=== PATIENT | male | born 1975 | race Caucasian/White ===

== ENCOUNTER → 2017-10-15 11:46 | Outpatient (CLI) | payer MEDICAID, SELFPAY ==
--- NOTE | 2017-10-15 13:24 | STRESSREP ---
Stress Test Report Treadmill EKG report: Resting EKG: Normal sinus rhythm, poor R-wave progression across the precordium which may indicate old anterior wall myocardial infarction versus lead misplacement. Normal intervals. Treadmill EKG: The patient exercise according to a Manish protocol for 10 minutes and 46 seconds, achieving a maximum workload of 12.9 METS. Resting heart rate was initially 59 beats a minute and michele to maximum of 153 bpm which represents 85% of the maximal age corrected heart rate. Resting blood pressure is 130/84, and michele to maximum 154/70. Test was terminated due to the attainment of target heart rate. During exercise the patient's heart rate increased as expected. Patient had no dynamic EKG changes to suggest ischemia. No arrhythmias noted. Conclusions normal adequate treadmill EKG. Negative for ischemia by EKG criteria. No anginal symptoms noted. No arrhythmias noted. Average exercise capacity for age. Appropriate blood pressure response to exercise. Test terminated due to the attainment of target heart rate. Patient tolerated procedure well. No complications.
== END ==
PROVIDERS: Family Provider Student in an Organized Health Care Education/Training Program; PCP Student in an Organized Health Care Education/Training Program; Visit Provider Internal Medicine Cardiovascular Disease
DX: R00.2 Palpitations (principal); R06.02 Shortness of breath; R94.31 Abnormal electrocardiogram [ECG] [EKG]; R53.83 Other fatigue
CPT/HCPCS: 93017

== ENCOUNTER 2017-10-21 11:04 | Emergency (ER) | payer MEDICAID, SELFPAY ==
[2017-10-21 11:06] VITALS: BP 133/71; PULSE 103; RESP 16; TEMP 36.8; O2SAT 99; BMI 27.4
--- NOTE | 2017-10-21 11:10 | ED.RN ---
CALLED FOR EKG FOR CP.
--- NOTE | 2017-10-21 11:26 | CT_ITS ---
STUDY: CTA CHEST REASON FOR EXAM: Male, 42 years old. Shortness of breath. RADIATION DOSAGE (If Supplied By Facility): CTDIvol = ( 11.93 ) mGy, DLP = ( 487.15 ) mGycm TECHNIQUE: The examination was performed with the intravenous administration of 75 ml of Isovue 370 contrast material. Post-processing of the angiographic images was performed, with multiplanar reformation and 3D reconstruction. Individualized dose optimization techniques were used for this CT. COMPARISON: None. FINDINGS: Normal enhancement of the main pulmonary artery and right and left pulmonary arteries. Normal enhancement of the bilateral peripheral pulmonary arteries. There is no demonstrated pulmonary embolism. Normal thoracic aorta and visualized great vessels. There is no demonstrated aortic dissection. Normal heart and pericardium. Normal mediastinum. Normal hilar regions. Normal visualized trachea and bronchi. The lungs are well expanded. Mild degree of bibasilar atelectasis. Normal pleura. Normal chest wall structures. There are degenerative changes of thoracic spine. Diffuse fatty infiltration of the liver. CT/CTA Chest W/WO Contrast IMPRESSION: Mild degree of bibasilar atelectasis. Fatty infiltration of the liver. Electronically Signed: Arik Sanders MD at 13:32 EDT Tel [phone], Service support ,
--- NOTE | 2017-10-21 11:26 | EKG12_ITS ---
Test Reason : CP Blood Pressure : / mmHG Vent. Rate : 090 BPM Atrial Rate : 090 BPM P-R Int : 164 ms QRS Dur : 084 ms QT Int : 346 ms P-R-T Axes : 027 076 021 degrees QTc Int : 423 ms Normal sinus rhythm Anterior infarct , age undetermined Abnormal ECG Confirmed by KIMBER LORENZO, THERESA ([id number]), editor trade journal CARMEN ANDERSON ([id number]) on 10/24/2017 2:07:42 PM Referred By: Lucas Arizmendi Confirmed By:THERESA QUIROGA MD
[2017-10-21] MEDS: 0.9% Normal Saline 1,000 ML 1000 ML IV (11:48)
[2017-10-21 11:51] LABS: Absolute Lymphocyte Count 0.54 X10^3/ul (0.83-4.51); Absolute Neutrophil Count 10.5 X10^3/uL (2.0-7.7); Basophil# 0.01 X10^3/uL; Basophil% 0.1 % (0-1); Eosinophil# 0.02 X10^3/uL; Eosinophils% 0.2 % (0-5); Hematocrit 46.3 % (40-54); Hemoglobin 15.6 g/dl (13.0-16.5); Lymphocyte # 0.54 X10^3/ul (4.0); Lymphocyte % 4.6 % (19-41); Mean Corp Hgb Conc 33.7 g/gl (32-36); Mean Corpuscular Hgb 30.9 pg (27.0-32.0); Mean Corpuscular Volume 91.7 fL (80-94); Monocyte# 0.56 X10^3/uL; Monocyte% 4.8 % (0-10); Neutrophil # 10.48 X10^3/uL (2.7-7.7); Neutrophil % 90.2 % (47-70); Platelet Count 227 K/mm3 (150-450); RBC Distribution Width CV 13.2 % (11.6-14.6); RBC Distribution Width SD 43.4 fl (35.1-43.9); Red Blood Count 5.05 M/mm3 (4.6-6.2); White Blood Count 11.6 K/mm3 (4.4-11.0)
[2017-10-21 11:52] LABS: Differential Indicated SCAN CRITERIA MET; POSITIVE COUNT NO; POSITIVE DIFFERENTIAL YES; POSITIVE MORPHOLOGY NO
[2017-10-21 12:08] VITALS: BP 128/86; PULSE 85; RESP 17; O2SAT 95
[2017-10-21 12:10] LABS: AST(SGOT) 31 U/L (15-37); Alanine Aminotransfer ALT/SGPT 93 U/L (16-61); Albumin, Serum 4.2 g/dL (3.2-5.0); Alkaline Phosphatase 80 U/L (45-117); Anion Gap 8 (5-15); BUN 16 mg/dL (7-18); BUN/Creat Ratio 16.6 RATIO (10-20); Bilirubin, Direct 0.25 mg/dL (0.00-0.30); Calcium,Total 8.6 mg/dL (8.5-10.1); Chloride 109 mmol/L (98-107); Creatinine, Serum 0.96 mg/dL (0.70-1.30); EST Glomerular Filtration Rate 91 mL/min (>60); Est Glom Filt Rate - Afr Amer 110 mL/min (>60); Estimated Creatinine Clearance 90.46 ml/min; Globulin 3.8 g/dL (2.2-4.2); Glucose 100 mg/dL (74-106); Lipase 132 U/L (73-393); Potassium 3.8 mmol/L (3.5-5.1); Sodium Level 140 mmol/L (136-145)
[2017-10-21 13:26] VITALS: BP 130/90; PULSE 86; RESP 22; O2SAT 97
--- NOTE | 2017-10-21 13:41 | ED.VISSUMM ---
- ER Visit Summary Date of Service: 10/21/17 Chief Complaint: Chest pain History of Present Illness: The patient is a [address] Shirley and Dr. Arizmendi. He has chest pain began 4-5 days ago. It is continuous pressure. Zeta 10 at worst and currently. Is worsened by movement or exertion. Is relieved by nothing. He reports that he has been nausea and vomited once a day for the past week. No blood in his emesis. Also reports is been short of breath and diaphoretic. Patient had a stress test October 15 that was negative. He has hypertension as his only cardiac risk factor. 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 No recent travel. No ankle swelling or calf pain. Physical Examination: Vitals: Stable. Afebrile. General: Well-nourished and well-developed. Head: Normocephalic atraumatic. Neck: Supple, no lymphadenopathy. No JVD. Nontender. Cardiovascular: Regular rate and rhythm. No murmurs. Respiratory: No respiratory distress. Clear to auscultation bilaterally. Abdominal: Soft, mild epigastric tenderness to palpation, nondistended, normal bowel sounds. No guarding, rebound, or peritoneal signs. Back: Nontender. Extremities: Nontender, no edema. Skin: Normal color, no rash. Neurologic: Alert and oriented ?3. Cranial nerves II through XII are intact. Normal strength and sensation. Psych: Normal affect. Test Results: EKG is sinus at 90 with inferior Q waves. This is unchanged from July 2017. Troponin is negative despite days of constant pain. LFTs marked for an ALT of 93 and his direct bili is 1.2. Lipase is normal. Chem-7 is more for chloride 109. CBC is marked for white count 11.6, 97 neutrophils, 5 lymphocytes. CTA of the chest shows mild bibasilar atelectasis and a fatty liver. No PE or dissection. Emergency Department Course and Treatment: Patient is treated with aspirin and is resting comfortably. He refused pain or nausea medications. Treatment Plan: Patient has an appointment to see the PA for Dr. Arizmendi this afternoon. He is instructed to keep this appointment. He was discussed with Dr. Mason. His chest pain is not cardiac in etiology. He will be instructed follow-up Dr. Shirley for further evaluation as well. Return to the emergency department for any worsening symptoms. Disposition: To home in improved and stable condition. Impression: 1. Atypical chest pain. This note was generated with [employer] dictation software. It may contain incorrect words, spelling, and punctuation that were not noted in review of the chart prior to signing ED Disposition - Plan for ED Patient: Disposition: Home or Assisted Living Chief Complaint: Chest Pain Instructions: ED Chest Pain Atypical Unkn Cause Referrals: Christiano Shirley DO [Primary Care Provider] - 1-2 Days if not improving Lucas Arizmendi MD [STAFF PHYSICIAN] -
[2017-10-21 14:03] VITALS: BP 134/96; PULSE 94; RESP 22; O2SAT 95
== END 2017-10-21 14:08 | disposition home or self-care (01) ==
PROVIDERS: Emergency Provider Emergency Medicine; Family Provider Student in an Organized Health Care Education/Training Program; PCP Student in an Organized Health Care Education/Training Program
DX: R07.89 Other chest pain (principal); R11.2 Nausea with vomiting, unspecified; R06.00 Dyspnea, unspecified; R61 Generalized hyperhidrosis; J98.11 Atelectasis; K76.0 Fatty (change of) liver, not elsewhere classified; I10 Essential (primary) hypertension; Z86.718 Personal history of other venous thrombosis and embolism; Z98.52 Vasectomy status; F17.220 Nicotine dependence, chewing tobacco, uncomplicated
CPT/HCPCS: 71275; 80048; 80076; 83690; 84484; 85025; 93005; 96360; 96361; 99283; J7030; Q9967

== ENCOUNTER → 2018-10-28 14:41 | Outpatient (CLI) | payer MEDICAID, SELFPAY ==
[2018-10-08 14:40] VITALS: BMI 29.9
--- NOTE | 2018-10-28 14:42 | ECHOD_ITS ---
Reason For Study: Dyspne/SOB Procedure This was a 2D Doppler, Color Flow transthoracic echocardiogram. The exam was of adequate technical quality. Exam performed in department. Left Ventricle Normal LV size. Left ventricular systolic function is normal. The estimated ejection fraction is 55 %. No evidence for diastolic dysfunction. No regional wall motion abnormalities noted. Right Ventricle Normal RV size. Normal systolic function. Atria Normal left atrium. Normal right atrium. No doppler evidence for ASD. Mitral Valve There is no mitral annular calcification. Normal mitral valve. Trivial mitral valve insufficiency. Tricuspid Valve Normal tricuspid valve. Trivial tricuspid valve insufficiency. Right ventricular systolic pressure estimated to be 28 mmHg. Aortic Valve Trisinus/trileaflet aortic valve. Normal aortic valve. Pulmonic Valve Normal pulmonic valve. Trivial pulmonic valve insufficiency. Great Vessels Normal sized aortic root. Pericardium/Pleural No pericardial effusion. MMode/2D Measurements & Calculations LVIDd: 5.2 cm IVSd: 1.0 cm Ao root diam: 3.4 cm LVIDs: 3.4 cm LVPWd: 0.86 cm LA dimension: 4.1 cm RVDd: 4.1 cm FS: 35.2 % Time Measurements MV dec time: 0.21 sec Doppler Measurements & Calculations MV E max parvez: 106.4 cm/sec Lat Peak E' Parvez: 15.4 cm/sec Med Peak E' Parvez: 10.8 cm/sec MV A max parvez: 88.9 cm/sec E/E' lat: 6.9 E/E' med: 9.9 MV E/A: 1.2 MV V2 max: 114.2 cm/sec MV P1/2t max parvez: 108.3 cm/sec Ao V2 max: 125.1 cm/sec MV max P.2 mmHg MV P1/2t: 106.2 msec Ao max P.3 mmHg MV V2 mean: 58.5 cm/sec Ao V2 mean: 87.5 cm/sec MV mean P.6 mmHg MV dec slope: 298.7 cm/sec2 Ao mean P.5 mmHg MV V2 VTI: 38.8 cm MVA(P1/2t): 2.1 cm2 Ao V2 VTI: 26.1 cm LV V1 max: 101.4 cm/sec PA V2 max: 117.5 cm/sec PI end-d parvez: 100.8 cm/sec LV V1 max P.1 mmHg LV V1 mean P.0 mmHg LV V1 mean: 65.1 cm/sec LV V1 VTI: 22.4 cm TR max parvez: 248.7 cm/sec TR max P.7 mmHg Interpretation Summary Left ventricular systolic function is normal. The estimated ejection fraction is 55 %. Trivial mitral valve insufficiency. Trivial tricuspid valve insufficiency. Trivial pulmonic valve insufficiency. Right ventricular systolic pressure estimated to be 28 mmHg. No evidence for diastolic dysfunction. Ordering Physician: Lucas Arizmendi Referring Physician: Lucas Arizmendi Performed By: Manuel Pedersen RCS
== END ==
PROVIDERS: Family Provider Student in an Organized Health Care Education/Training Program; PCP Student in an Organized Health Care Education/Training Program; Referring Provider Internal Medicine Cardiovascular Disease; Visit Provider Internal Medicine Cardiovascular Disease
DX: I10 Essential (primary) hypertension (principal); R00.2 Palpitations; R94.31 Abnormal electrocardiogram [ECG] [EKG]
CPT/HCPCS: 93306

== ENCOUNTER → 2020-07-11 06:56 | Outpatient (CLI) | payer MEDICAID, SELFPAY ==
[2020-06-15 11:43] VITALS: BMI 32.6
--- NOTE | 2020-07-11 16:17 | STRESSREP_ITS ---
Stress Test Report Date: 07-11-2020 Procedure: Exercise tolerance test/imaging study Indications: Shortness of breath/dyspnea on exertion Consent: Per the patient Procedure: The patient exercised on a Manish protocol for 11 minutes and 8 seconds completing Stage III and 2 minutes and 8 seconds of Stage IV achieving a peak heart rate of 142 bpm (81% predicted maximal heart rate) with a peak blood pressure 160/70 mmHg and a peak MET capacity of 13 METs. The baseline ECG demonstrated sinus bradycardia. The peak exercise ECG demonstrated somatic/motion artifact with no obvious ECG changes. There was a rare PVC during recovery. The functional capacity was considered good. There was no chest discomfort during exercise or recovery. The examination was discontinued secondary to leg fatigue. Impression: 1. Technically adequate (percent predicted maximal heart rate greater than 85%) exercise tolerance test 2. Peak exercise ECG with somatic/motion artifact with no obvious ECG changes 3. There was a rare PVC during recovery 4. Nuclear images pending Myocardial perfusion imaging study: Technique: The patient was injected with 11.0 mCi of technetium 99m Cardiolite and subsequently rest SPECT Cardiolite nuclear imaging was obtained in the horizontal long, vertical long, and short axis views. The patient exercised on a Manish protocol for 11 minutes and 8 seconds completing Stage III and 2 minutes and 8 seconds of Stage IV achieving a peak heart rate of 142 bpm (81% predicted maximal heart rate) with a peak blood pressure 160/70 mmHg and a peak MET capacity of 13 METs. The patient was injected with 33.1 mCi of technetium 99m Cardiolite and subsequently stress SPECT Cardiolite nuclear imaging was obtained in the horizontal long, vertical long, and short axis views. A gated Cardiolite study at peak stress was obtained. Interpretation: Rest and stress SPECT Cardiolite nuclear imaging status post realignment, normalization, and attenuation correction, demonstrates the appearance of relative uniform tracer uptake and myocardial perfusion appearing within normal limits. There is end systolic thickening and brightening. The gated Cardiolite study demonstrates myocardial thickening and inward wall motion. The reported LVEF is 68%. Impression: 1. Rest and stress SPECT Cardiolite nuclear imaging demonstrate relative uniform tracer uptake and myocardial perfusion appearing within normal limits. 2. The gated Cardiolite study reports an LVEF of 68%. This note was generated with [email or web address] software. It may contain incorrect words, spelling, and punctuation that were not noted in checking the note before signing.
== END ==
PROVIDERS: PCP Student in an Organized Health Care Education/Training Program; Referring Provider Internal Medicine Cardiovascular Disease; Visit Provider Internal Medicine Cardiovascular Disease
DX: R06.09 Other forms of dyspnea (principal); R00.2 Palpitations; I10 Essential (primary) hypertension
CPT/HCPCS: 78452; 93017; A9500; A4216

== ENCOUNTER 2021-01-18 06:28 | Emergency (ER) | payer MEDICAID, SELFPAY ==
[2020-06-15 11:43] VITALS: BMI 32.6
[2021-01-18 06:29] VITALS: BP 155/94; PULSE 96; RESP 16; TEMP 35.8; O2SAT 51; BMI 29.8
--- NOTE | 2021-01-18 06:47 | EKG12_ITS ---
Test Reason : ABNL PAIN Blood Pressure : / mmHG Vent. Rate : 042 BPM Atrial Rate : 042 BPM P-R Int : 196 ms QRS Dur : 098 ms QT Int : 474 ms P-R-T Axes : -01 047 060 degrees QTc Int : 395 ms Marked sinus bradycardia Abnormal ECG Confirmed by DONNELL LORENZO, MICHELLE ([id number]), editor & co founder MAYELIN HALL ([id number]) on 01/22/2021 10:51:51 A M Referred By: KATIE Confirmed By:VON JACOBO MD
--- NOTE | 2021-01-18 06:47 | CT_ITS ---
STUDY: CT ABDOMEN AND PELVIS WITH CONTRAST REASON FOR EXAM: Male, 45 years old. RUQ pain RADIATION DOSAGE (If Supplied By Facility): CTDIvol = ( 12.85 ) mGy, DLP = ( 852.22 ) mGycm TECHNIQUE: Transaxial images were obtained from the dome of the diaphragm to the symphysis pubis without oral contrast. IV 100mL Isovue-300 was administered. Sagittal and coronal images were reconstructed. Individualized dose optimization techniques were used for this CT. COMPARISON: CT angiogram chest 10/21/2017 FINDINGS: The visualized lung bases are unremarkable. The visualized portions of the heart are within normal limits. There is decreased attenuation of the liver consistent with steatosis. The wall the gallbladder is minimally ill-defined on image #43 coronal views there is a visualized focus of pericholecystic fluid. Normal pancreas. Normal bilateral adrenal glands. Normal right kidney. Normal left kidney. There is a mildly thick-walled appearance of the rugae of the stomach. There is mild distention of the small bowel. There is a decompressed mildly thick-walled appearance of the descending colon and rectum. The appendix is visualized and appears normal. Normal abdominal aorta. Normal inferior vena cava. Normal retroperitoneum. Normal urinary bladder. Normal visualized prostate gland. Normal abdominal wall. There are diffuse degenerative changes of the visualized lumbar spine. There is a broad disc osteophyte in the left lateral aspect of L5-S1 with moderate to severe left neural foramina narrowing. CT/Abdomen/Pelvis W IV Cont ONLY IMPRESSION: Hepatic steatosis. Pericholecystic fluid mildly ill defined appearance of the wall the gallbladder consider acute cholecystitis. The patient may have diarrhea. There is a decompressed mildly thick-walled appearance of the descending colon and sigmoid. Consider mild colitis/proctitis. Electronically Signed: Bianca Santana MD at 7:44 EDT Tel , Service support ,
--- NOTE | 2021-01-18 06:48 | EDS_ITS ---
HPI <Dr. Kimber Jules DO - Last Filed: 01/18/21 07:45> HPI - GI History of Present Illness Chief Complaint: Abd Pain Informant: patient Narrative Narrative: Patient is a 45-year-old male presenting from home with right upper quadrant abdominal pain. He states started on 4 AM it woke him up from sleep. He states it is sharp and radiates to his back. He states it feels like he is being stabbed by a spear. He has associated nausea but no vomiting. He has had normal bowel movements today and over the past few days but notes he was blocked up over the weekend. He never had pain like this before. He notes he feels like it is underneath his ribs and his right upper quadrant. He did eat a cheese steak deluxe last night for dinner. He is not had any postprandial symptoms lately. He does have history of GERD and takes Prilosec but states this does not feel anything like his heartburn. He denies any chest pain or shortness of breath but notes the pain is worse if he takes a deep breath. No urinary symptoms. No other complaints at this time. No abdominal surgeries in the past. [facility], LATER [facility] <Dr. Kimber Jules DO - Last Filed: 01/18/21 07:45> [facility], [facility] Medical History Abnormal electrocardiogram Acute bronchitis Benign essential hypertension Bronchitis Candidiasis of mouth Chronic neck pain Diarrhea DJD (degenerative joint disease) DVT (deep venous thrombosis) Fatigue Heart attack History of skin cancer Hypertension Low testosterone in male Palpitations Pharyngitis Sinusitis SOB (shortness of breath) Upper back pain Home Medications omeprazole 20 mg capsule,delayed release 20 mg PO QDAY 07/21/17 [History Last Taken Unknown] loratadine 10 mg tablet 10 mg PO DAILY 06/15/20 [History Last Taken Unknown] hydrocodone-acetaminophen 1 tab PO Q6H PRN PRN 3 Days #10 tablet 01/18/21 [Rx Last Taken Unknown] ondansetron 4 mg PO Q8H PRN PRN #10 tab 01/18/21 [Rx Last Taken Unknown] Allergy/AdvReac Type Severity Reaction Status Date / Time Penicillins Allergy Unknown Verified 01/18/21 06:34 sulfamethoxazole AdvReac Unknown Unknown Verified 01/18/21 06:34 [From Septra] trimethoprim [From Septra] AdvReac Unknown Unknown Verified 01/18/21 06:34 erythromycin base AdvReac NEEDS Verified 01/18/21 06:53 FOLLOW-UP Family History Grandmother CAD (coronary artery disease) Surgical History History of local excision of skin lesion History of vasectomy Social History Smoking Status: Former smoker how long ago did patient quit smokin years ago alcohol intake: current alcohol intake frequency: a few times a week Alcohol type: wine details: occasionally substance use type: does not use caffeine: Yes Type: carbonated beverages Number of servings: 1 and coffee Number of servings: 1 ROS <Dr. Kimber Jules DO - Last Filed: 01/18/21 07:45> ROS ED Constitutional Constitutional ED: Denies chills or fever(s) ENT ENT ED: Denies rhinorrhea or sore throat Cardiovascular Cardiovascular: Denies chest pain or palpitations Respiratory/Chest Respiratory/Chest: Denies cough, dyspnea or dyspnea on exertion Gastrointestinal Gastrointestinal: Reports abdominal pain and nausea; Denies diarrhea or vomiting Genitourinary Genitourinary ED: Denies dysuria or hematuria Musculoskeletal Musculoskeletal: Denies arthralgias or myalgias Integumentary Denies rash Neurologic Neurologic: Denies headache(s) or weakness Psychiatric Psychiatric: Denies anxiety or depression EXAM <Dr. Kimber Jules DO - Last Filed: 01/18/21 07:45> Physical Exam Const Vital Signs: 01/18/21 06:29 Temperature 96.5 F L Temperature Source Temporal Pulse Rate 96 Respiratory Rate 16 Blood Pressure 155/94 H Blood Pressure Mean 114 Pulse Ox 51 Oxygen Delivery Method Room Air Positive well nourished and well developed General Appearance ED: well developed HEENT normocephalic and atraumatic Eyes PERRL and EOMs intact bilaterally Neck supple and no JVD Resp normal respiratory effort and clear to auscultation bilaterally Cardio regular rate, regular rhythm and no murmurs GI Inspection: Negative for abdominal distention Auscultation: hypoactive bowel sounds Palpation: soft, tender RUQ and Case's sign and guarding; Negative for rigid Extremity full ROM General Extremety ED: Yes edema General Extremity: edema Neuro Neuro Narrative: No focal deficits appreciated Sensorium / Orientation: alert; Negative for orientation impaired Psych mental status grossly normal and thought process normal Skin Lesions: no lesions Rashes: no rashes <Dr. Ar Guardado MD - Last Filed: 01/18/21 09:16> Physical Exam Const Vital Signs: 01/18/21 06:29 Temperature 96.5 F L Temperature Source Temporal Pulse Rate 96 Respiratory Rate 16 Blood Pressure 155/94 H Blood Pressure Mean 114 Pulse Ox 51 Oxygen Delivery Method Room Air MDM <Dr. Kimber Jules DO - Last Filed: 01/18/21 07:45> MDM MDM Narrative Medical decision making narrative: Patient evaluated for right upper quadrant abdominal pain that started 4 AM. His presentation is concerning for acute cholecystitis or other biliary process. He is hemodynamically stable. He is treated with IV fluids, Zofran and morphine initially. He signed out to oncoming provider pending final work-up. Lab Data Attestation: I reviewed the patient's lab results. Labs: Laboratory Results - last 24 hr 01/18/21 01/18/21 01/18/21 06:10 06:10 06:10 WBC 7.1 RBC 4.95 Hgb 15.2 Hct 45.3 MCV 91.5 MCH 30.7 MCHC 33.6 RDW Std Deviation 42.1 RDW Coeff of Sylvia 12.6 Plt Count 248 MPV 10.0 Immature Gran % (Auto) 0.300 Neut % (Auto) 62.7 Lymph % (Auto) 27.8 Bremer % (Auto) 6.9 Eos % (Auto) 1.6 Baso % (Auto) 0.7 Absolute Neuts (auto) 4.4 Absolute Lymphs (auto) 1.97 Nucleated RBC % 0 Sodium 140 Potassium 4.0 Chloride 110 H Carbon Dioxide 27.0 Anion Gap 3 L BUN 15 Creatinine 0.90 Estim Creat Clear Calc 93.53 Est GFR (MDRD) Af Amer 118 Est GFR (MDRD) Non-Af 97 BUN/Creatinine Ratio 16.8 Glucose 107 H Calcium 9.0 Total Bilirubin 0.90 Direct Bilirubin 0.39 H AST 93 H ALT 110 H Alkaline Phosphatase 84 Troponin I < 0.015 Total Protein 7.7 Albumin 4.0 Globulin 3.7 Lipase 139 Urine Color Yellow Urine Clarity Clear Urine pH 5.0 Ur Specific Newton 1.030 Urine Protein 15 H Urine Glucose (UA) Normal Urine Ketones 5 H Urine Occult Blood Negative Urine Nitrite Negative Urine Bilirubin Negative Urine Urobilinogen Normal Ur Leukocyte Esterase Negative Urine RBC 0-5 SEEN Urine WBC 0 SEEN Ur Squamous Epith Cells 0 SEEN Urine Bacteria 0 SEEN Urine Mucus 0 SEEN Radiography Diagnostic Testing: Radiology Impression Abdomen/Pelvis CT 01/18/21 06:47 IMPRESSION: Hepatic steatosis. Pericholecystic fluid mildly ill defined appearance of the wall the gallbladder consider acute cholecystitis. The patient may have diarrhea. There is a decompressed mildly thick-walled appearance of the descending colon and sigmoid. Consider mild colitis/proctitis. Electronically Signed: Bianca Santana MD at 7:44 EDT Tel , Service support , Gallbladder Ultrasound 01/18/21 07:36 IMPRESSION: Mild hepatomegaly with diffuse fatty infiltration of the liver. Findings suggestive of a 2 mm gallbladder polyp. Electronically Signed: Arik Sanders MD at 9:09 EDT , Service support , Rhythm Strip Rhythm Strip: Sinus bradycardia Rate: 42 Ectopy: None EKG Initial EKG: Attestation: I personally reviewed and interpreted this EKG as follows: Interpretation: Sinus Bradycardia Comments: Sinus bradycardia at a rate of 42 Normal axis Normal intervals Normal ST segments <Dr. Ar Guardado MD - Last Filed: 01/18/21 09:16> [facility] Narrative Medical decision making narrative: The patient was signed out to me pending results of CT. CT was obtained which shows questionable evidence of cholecystitis. I did discuss this with surgery who recommended getting formal ultrasound. Right upper quadrant ultrasound was done. It does demonstrate fatty liver. However, the gallbladder is normal. There is no pericholecystic fluid. There is no evidence of cholecystitis. On reevaluation, the patient is pain-free and resting comfortably. I did chief counsel him on diet modification and foods to avoid. I am going to give him outpatient follow-up with surgery as if he continues to have symptoms, he may need cholecystectomy. He is comfortable with this plan of care. Impression 1. Biliary colic Lab Data Attestation: I reviewed the patient's lab results. Labs: Laboratory Results - last 24 hr 01/18/21 01/18/21 01/18/21 06:10 06:10 06:10 WBC 7.1 RBC 4.95 Hgb 15.2 Hct 45.3 MCV 91.5 MCH 30.7 MCHC 33.6 RDW Std Deviation 42.1 RDW Coeff of Sylvia 12.6 Plt Count 248 MPV 10.0 Immature Gran % (Auto) 0.300 Neut % (Auto) 62.7 Lymph % (Auto) 27.8 Bremer % (Auto) 6.9 Eos % (Auto) 1.6 Baso % (Auto) 0.7 Absolute Neuts (auto) 4.4 Absolute Lymphs (auto) 1.97 Nucleated RBC % 0 Sodium 140 Potassium 4.0 Chloride 110 H Carbon Dioxide 27.0 Anion Gap 3 L BUN 15 Creatinine 0.90 Estim Creat Clear Calc 93.53 Est GFR (MDRD) Af Amer 118 Est GFR (MDRD) Non-Af 97 BUN/Creatinine Ratio 16.8 Glucose 107 H Calcium 9.0 Total Bilirubin 0.90 Direct Bilirubin 0.39 H AST 93 H ALT 110 H Alkaline Phosphatase 84 Troponin I < 0.015 Total Protein 7.7 Albumin 4.0 Globulin 3.7 Lipase 139 Urine Color Yellow Urine Clarity Clear Urine pH 5.0 Ur Specific Newton 1.030 Urine Protein 15 H Urine Glucose (UA) Normal Urine Ketones 5 H Urine Occult Blood Negative Urine Nitrite Negative Urine Bilirubin Negative Urine Urobilinogen Normal Ur Leukocyte Esterase Negative Urine RBC 0-5 SEEN Urine WBC 0 SEEN Ur Squamous Epith Cells 0 SEEN Urine Bacteria 0 SEEN Urine Mucus 0 SEEN Radiography Diagnostic Testing: Radiology Impression Abdomen/Pelvis CT 01/18/21 06:47 IMPRESSION: Hepatic steatosis. Pericholecystic fluid mildly ill defined appearance of the wall the gallbladder consider acute cholecystitis. The patient may have diarrhea. There is a decompressed mildly thick-walled appearance of the descending colon and sigmoid. Consider mild colitis/proctitis. Electronically Signed: Bianca Santana MD at 7:44 EDT Tel , Service support , Gallbladder Ultrasound 01/18/21 07:36 IMPRESSION: Mild hepatomegaly with diffuse fatty infiltration of the liver. Findings suggestive of a 2 mm gallbladder polyp. Electronically Signed: Arik Sanders MD at 9:09 EDT , Service support , Discharge Plan Triage Chief Complaint: Abd Pain ED Provider: Ar Guardado Dx/Rx/DC Orders Instructions: ED Gallstones with Biliary Colic Prescriptions: New hydrocodone-acetaminophen [hydrocodone-acetaminophen] 1 TABLET tablet 1 tab PO Q6H PRN PRN (Reason: Pain) 3 Days Qty: 10 RF: 0 ondansetron [ondansetron] 4 MG tablet 4 mg PO Q8H PRN PRN (Reason: Nausea) Qty: 10 RF: 0 No Action omeprazole 20 mg capsule,delayed release(DR/EC) 20 mg PO QDAY RF: 0 loratadine [Claritin] 10 mg tablet 10 mg PO DAILY RF: 0 Primary Care Provider: Christiano Shirley Referrals: Christiano Shirley DO [Primary Care Provider] - Domi Baugh MD [STAFF PHYSICIAN] - 3-5 Days
[2021-01-18 06:54] LABS: Absolute Lymphocyte Count 1.97 X10^3/uL (0.83-4.51); Absolute Neutrophil Count 4.4 X10^3/uL (2.0-7.7); Basophil# 0.05 X10^3/uL; Basophil% 0.7 % (0-1); Eosinophil# 0.11 X10^3/uL; Eosinophils% 1.6 % (0-5); Hematocrit 45.3 % (40-54); Hemoglobin 15.2 g/dL (13.0-16.5); Lymphocyte # 1.97 X10^3/ul (0.83-4.51); Lymphocyte % 27.8 % (19-41); Mean Corp Hgb Conc 33.6 g/dL (32-36); Mean Corpuscular Hgb 30.7 pg (27.0-32.0); Mean Corpuscular Volume 91.5 fL (80-94); Monocyte# 0.49 X10^3/uL; Monocyte% 6.9 % (0-10); NRBC Flagged by Analyzer 0 % (0-5); Neutrophil # 4.44 X10^3/uL (2.7-7.7); Neutrophil % 62.7 % (47-70); Platelet Count 248 K/mm3 (150-450); RBC Distribution Width CV 12.6 % (11.6-14.6); RBC Distribution Width SD 42.1 fl (35.1-43.9); Red Blood Count 4.95 M/mm3 (4.6-6.2); White Blood Count 7.1 K/mm3 (4.4-11.0)
[2021-01-18 06:56] LABS: Bacteria 0 SEEN /hpf (None Seen); Mucous, Urine 0 SEEN /hpf (<or=2+); Squamous Epithelial Cells - UA 0 SEEN /hpf (0-5); White Blood Cells 0 SEEN /hpf (0-5)
[2021-01-18 06:57] LABS: Color, Urine Yellow (Yellow); Glucose, Dipstick Normal (Normal); Ketone-Dipstick 5 mg/dl (Negative); Leukocyte Esterase-Dipstick Negative /ul (Negative); Nitrite-Dipstick Negative (Negative); Occult Blood-Urine Negative /ul (Negative); Protein-Dipstick 15 mg/dl (Negative); Urine Bilirubin Dipstick Negative (Negative); Urine Clarity Clear (Clear); Urine Urobilinogen Normal (Normal)
[2021-01-18] MEDS: 0.9% Normal Saline 1,000 ML 1000 ML IV (07:04)
[2021-01-18] MEDS: Morphine 4 MG/ML Syringe IV (07:04)
[2021-01-18] MEDS: Ondansetron 4 MG/2 ML Vial IV (07:05)
[2021-01-18 07:07] LABS: Red Blood Cells-Urine 0-5 SEEN /hpf (0-5)
[2021-01-18 07:13] LABS: AST(SGOT) 93 U/L (15-37); Alanine Aminotransfer ALT/SGPT 110 U/L (16-61); Alkaline Phosphatase 84 U/L (45-117); Anion Gap 3 (5-15); BUN 15 mg/dL (7-18); BUN/Creat Ratio 16.8 RATIO (10-20); Bilirubin, Direct 0.39 mg/dL (0.00-0.30); Chloride 110 mmol/L (98-107); EST Glomerular Filtration Rate 97 mL/min (>60); Est Glom Filt Rate - Afr Amer 118 mL/min (>60); Estimated Creatinine Clearance 93.53 ml/min; Globulin 3.7 g/dL (2.2-4.2); Glucose 107 mg/dL (74-106); Lipase 139 U/L (73-393); Protein, Total 7.7 g/dL (6.4-8.2); Sodium Level 140 mmol/L (136-145)
--- NOTE | 2021-01-18 07:36 | US_ITS ---
STUDY: ABDOMINAL ULTRASOUND - RIGHT UPPER QUADRANT REASON FOR VISIT: Male, 45 years old right upper quadrant pain. TECHNIQUE: Ultrasound evaluation of the right upper quadrant was performed with real-time and static ellington-scale imaging. TECHNICAL QUALITY: Adequate. COMPARISON: Comparison is made with prior CT scan of the abdomen and pelvis done earlier today. FINDINGS: Liver: The liver is slightly enlarged and measures 18.8 cm. There is increased echogenicity consistent with fatty infiltration. The bile ducts are within normal limits. There is hepatic color flow. The direction of portal flow is hepatopetal. There is no demonstrated mass lesion. Gallbladder: Normal distended gallbladder. The gallbladder wall measures 1.6 mm. There is a negative sonographic Case''s sign. There is no pericholecystic fluid. There are no gallstones. There is a 2 mm polyp along the dependent wall of the gallbladder. Common Bile Duct (C.B.D.): The common bile duct measures 5.3 mm. Pancreas: Normal size of the head, body and tail of the pancreas. There is normal echogenicity of the pancreas. There is no demonstrated pancreatic mass or cyst. Right Kidney: Normal size of the right kidney. The right kidney measures 11.6 cm x 7 cm x 5.9 cm. Normal renal cortex. The right cortex measures 1.1 cm. There is no demonstrated renal mass or cyst. There is no right hydronephrosis. US/Gallbladder IMPRESSION: Mild hepatomegaly with diffuse fatty infiltration of the liver. Findings suggestive of a 2 mm gallbladder polyp. Electronically Signed: Arik Sanders MD at 9:09 EDT , Service support ,
[2021-01-18 09:27] VITALS: BP 124/73; PULSE 71; RESP 18; O2SAT 98
--- NOTE | 2021-01-18 09:28 | ED.RN ---
THIS NURSE REVIEWED D/C INSTRUCTIONS WITH PT AND VISITOR. PT VERBALIZED UNDERSTANDING OF INSTRUCTIONS. IV D/C. IV CATHETER INTACT. PT TOLERATED WELL. PT DENIES FURTHER NEEDS OR QUESTIONS AT THIS TIME
== END 2021-01-18 09:29 | disposition home or self-care (01) ==
PROVIDERS: Emergency Medicine; Emergency Provider Emergency Medicine; PCP Student in an Organized Health Care Education/Training Program
DX: K80.70 Calculus of gallbladder and bile duct without cholecystitis without obstruction (principal); K21.9 Gastro-esophageal reflux disease without esophagitis; I10 Essential (primary) hypertension; G89.29 Other chronic pain; M54.2 Cervicalgia; M19.90 Unspecified osteoarthritis, unspecified site; I25.2 Old myocardial infarction; Z86.718 Personal history of other venous thrombosis and embolism; Z85.828 Personal history of other malignant neoplasm of skin; Z79.899 Other long term (current) drug therapy
CPT/HCPCS: 74177; 76705; 80048; 80076; 81001; 83690; 84484; 85025; 87426; 93005; 96361; 96374; 96375; 99283; J7030; Q9967; J2405

== ENCOUNTER 2022-11-29 06:04 | Emergency (ER) | payer MEDICAID, SELFPAY ==
[2022-11-29 06:04] VITALS: BP 131/82; PULSE 63; RESP 15; TEMP 37.2; O2SAT 97
[2022-11-29 06:07] VITALS: BMI 25.8
--- NOTE | 2022-11-29 06:12 | EDS_ITS ---
HPI History of Present Illness Chief Complaint: Other, Pain/Inj Detail of Chief Complaint: Dental pain Informant: patient Narrative Narrative: Since yesterday, patient has been having worsening left maxillary dental pain. All of his left maxillary teeth feel sore, and he cannot tell if it is a tooth or a sinus that is bothering him; he states this because for the past 2 weeks he has been having an upper respiratory tract infection that everyone in the house has had sequentially. Some people have had more nasal symptoms and others have had more chest symptoms, all have been a minor cough. No dyspnea. No fevers or chills. He states both of that is better. He states the discomfort is going into his left ear, and his hearing goes in and out like he is in a tunnel. No discharge from the ear. He states within the past month or 2 he had a left maxillary dental procedure. [facility] Medical History Abnormal electrocardiogram Acute bronchitis Acute bronchitis, unspecified Acute maxillary sinusitis, unspecified Benign essential hypertension Bronchitis Candidiasis of mouth Chronic neck pain Diarrhea DJD (degenerative joint disease) DVT (deep venous thrombosis) Fatigue Heart attack History of skin cancer Hypertension Low testosterone in male Palpitations Pharyngitis Sinusitis SOB (shortness of breath) Upper back pain Home Medications omeprazole 20 mg capsule,delayed release 20 mg PO QDAY 07/21/17 [History Last Taken Unknown] loratadine 10 mg tablet (Claritin) 10 mg PO DAILY 06/15/20 [History Last Taken Unknown] hydrocodone-acetaminophen 5-325mg 5mg-325mg 1 tab PO Q6H PRN PRN Pain 3 days #10 TABLETS 01/18/21 [Rx Last Taken Unknown] ondansetron 4 mg disintegrating tablet 4 mg PO Q8H PRN PRN Nausea #10 tabs 01/18/21 [Rx Last Taken Unknown] azithromycin 250 mg tablet (Zithromax Z-Ant) See Rx Instructions PO .COMPLEX #6 tabs 04/18/21 [Rx Last Taken Unknown] levofloxacin 750 mg tablet 750 mg PO DAILY #10 tabs 10/10/21 [Rx Last Taken Unknown] clindamycin HCl 150 mg capsule 300 mg PO 4X/DAY #80 CAPSULES 11/29/22 [Rx Last Taken Unknown] tramadol 50 mg tablet 50 mg PO Q6H PRN pain 3 days #12 tabs 11/29/22 [Rx Last Taken Unknown] Allergy/AdvReac Type Severity Reaction Status Date / Time Penicillins Allergy Unknown Verified 04/18/21 13:13 sulfamethoxazole AdvReac Unknown Unknown Verified 04/18/21 13:13 [From ] trimethoprim [From ] AdvReac Unknown Unknown Verified 04/18/21 13:13 erythromycin base AdvReac NEEDS Verified 04/18/21 13:13 FOLLOW-UP Family History Grandmother CAD (coronary artery disease) Surgical History History of local excision of skin lesion History of vasectomy Social History Smoking Status: Former smoker how long ago did patient quit smokin years ago alcohol intake: current alcohol intake frequency: a few times a week Alcohol type: wine details: occasionally substance use type: does not use caffeine: Yes Type: carbonated beverages Number of servings: 1 and coffee Number of servings: 1 ROS ROS ED Constitutional Constitutional ED: Denies chills or fever(s) Eyes Eyes: Denies change in vision or double vision ENT ENT ED: Reports as per HPI, dental pain, ear pain left, nasal congestion and sinus pain; Denies headache(s), throat swelling or tinnitus Cardiovascular Cardiovascular: Denies chest pain or palpitations Respiratory/Chest Respiratory/Chest: Denies cough or dyspnea Integumentary Denies abscess or rash Neurologic Neurologic: Denies headache(s), paresthesias or weakness EXAM Physical Exam Const Vital Signs: 11/29/22 06:04 Temperature 98.9 F Temperature Source Temporal Pulse Rate 63 Respiratory Rate 15 Blood Pressure 131/82 H Blood Pressure Mean 98 Pulse Ox 97 Oxygen Delivery Method Room Air Positive well nourished and well developed General Appearance ED: well developed and NAD HEENT HEENT Narrative: Mild left maxillary sinus tenderness. Only tooth #10 is tender, and it is with axial loading of the tooth. There is no subluxation. No abscess. No trismus. No other dental tenderness. Posterior oropharynx normal and clear. No parotid tenderness. Both TMs and EACs normal. No erythema or effusion. Speech normal no stridor. Mouth ED: Yes lips normal and Yes tongue normal Mouth: lips normal and tongue normal Throat: posterior oropharynx normal Eyes PERRL and EOMs intact bilaterally Neck no lymphadenopathy and supple Resp normal respiratory effort Neuro oriented x3 and CN's II-XII intact bilaterally Sensorium / Orientation: alert Gait (Neuro): normal gait Psych mental status grossly normal and thought process normal Skin no rashes or lesions noted and no wounds MDM MDM MDM Narrative Medical decision making narrative: I think this is more likely to be a dental issue than acute bacterial sinusitis. He is wanting something for pain which I think is fine, we will give him some tramadol and a prescription in addition to amoxicillin, I recommend using nasal decongestants to treat nonbacterial sinusitis empirically in addition. Discharge Plan Triage Chief Complaint: Other, Pain/Inj ED Provider: Stan Duncan Dx/Rx/DC Orders Clinical Impression: Odontalgia Instructions: ED Dental Pain Prescriptions: New clindamycin HCl 150 mg capsule 300 mg PO 4X/DAY Qty: 80 0RF tramadol 50 mg tablet 50 mg PO Q6H PRN (Reason: pain) 3 Days Qty: 12 0RF No Action omeprazole 20 mg capsule,delayed release(DR/EC) 20 mg PO QDAY loratadine [Claritin] 10 mg tablet 10 mg PO DAILY azithromycin [Zithromax Z-Ant] 250 mg tablet See Rx Instructions PO .COMPLEX Qty: 6 0RF Rx Instructions: take 500 mg today (day 1), then 250 mg for 4 days (days 2-5) PO levofloxacin 750 mg tablet 750 mg PO DAILY Qty: 10 0RF hydrocodone-acetaminophen [hydrocodone-acetaminophen] 1 TABLET tablet 1 tab PO Q6H PRN PRN (Reason: Pain) 3 Days Qty: 10 0RF ondansetron [ondansetron] 4 MG tablet 4 mg PO Q8H PRN PRN (Reason: Nausea) Qty: 10 0RF Primary Care Provider: Christiano Shirley Referrals: Christiano Shirley, [Primary Care Provider] - Dentist,Your [STAFF PHYSICIAN] - As soon as possible Disposition Disposition: Home, Self Care
[2022-11-29] MEDS: traMADol 50 MG Tablet PO (06:42)
== END 2022-11-29 06:43 | disposition home or self-care (01) ==
LOC: ED 06:23
PROVIDERS: Emergency Provider Emergency Medicine; PCP Student in an Organized Health Care Education/Training Program; Visit Provider Emergency Medicine
DX: K08.89 Other specified disorders of teeth and supporting structures (principal); Z87.891 Personal history of nicotine dependence; I10 Essential (primary) hypertension
CPT/HCPCS: 99283

== ENCOUNTER → 2024-11-09 | Outpatient (CLI) | payer BC, MEDICAID, SELFPAY ==
[2024-11-09 06:32] LABS: Hematocrit 41.9 % (40-54); Hemoglobin 14.6 g/dL (13.0-16.5); Mean Corp Hgb Conc 34.8 g/dL (32-36); Mean Corpuscular Hgb 31.4 pg (27.0-32.0); Mean Corpuscular Volume 90.1 fL (80-94); Mean Platelet Vol. 9.5 fl (6.2-12.0); Platelet Count 288 K/mm3 (150-450); RBC Distribution Width CV 13.2 % (11.6-14.6); RBC Distribution Width SD 43.2 fl (35.1-43.9); Red Blood Count 4.65 M/mm3 (4.6-6.2); White Blood Count 8.2 K/mm3 (4.4-11.0)
--- NOTE | 2024-11-09 06:41 | MRI_ITS ---
PROCEDURE: BRAIN W/WO CONTRAST 11/09/2024 REASON FOR EXAM: MEMORY LOSS TECHNIQUE: Brain MRI without and with intravenous contrast with additional dedicated imaging of the IACs. CONTRAST: 15 cc IV Clariscan COMPARISON: None FINDINGS: TECHNIQUE: Multiplanar, multi-sequence MRI of brain was performed without and with IV contrast. FINDINGS: BRAIN/PARENCHYMA: No evidence of acute infarction or acute intracranial hemorrhage. No suspicious intracranial mass. No abnormal parenchymal or leptomeningeal enhancement. EXTRA-AXIAL SPACES: No abnormal extra-axial fluid collections. Patent basal cisterns and foramen magnum. MIDLINE SHIFT: None. VENTRICLES: No hydrocephalus. SCALP SOFT TISSUES & CALVARIUM: No significant abnormality. VISUALIZED SINUSES & MASTOIDS: Mild paranasal sinus mucosal thickening. No air- fluid levels in the paranasal sinuses. The mastoid air cells are clear. ARTERIAL FLOW VOIDS: Preserved major arterial flow voids indicating gross patency. Craniocervical junction is within normal limits. Orbits are unremarkable. Calvarium and extracranial soft tissues are unremarkable. MRI/Brain W/WO Contrast IMPRESSION: No acute intracranial abnormality. No suspicious intracranial mass, abnormal parenchymal or leptomeningeal enhance ment. Reading Location: [facility]
[2024-11-09 07:04] LABS: Hemoglobin A1c 5.7 % (<=5.6)
[2024-11-09 07:20] LABS: ALB/GLOB Ratio 1.5 RATIO (0.9-2.4); AST(SGOT) 19 U/L (<=37); Alanine Aminotransfer ALT/SGPT 20 U/L (<=46); Albumin, Serum 4.3 g/dL (3.5-5.0); Alkaline Phosphatase 62 U/L (40-129); Anion Gap 12 (5-15); BUN 15 mg/dL (4-19); Calcium,Total 9.7 mg/dL (7.6-11.0); Carbon Dioxide 23.4 mmol/L (21.0-32.0); Chloride 105 mmol/L (98-108); Creatinine, Serum 0.86 mg/dL (0.70-1.20); EST Glomerular Filtration Rate 106 (>60); Ferritin 452 ng/mL (37-417); Globulin 2.9 g/dL (2.2-4.2); Glucose 110 mg/dL (70-99); Protein, Total 7.2 g/dL (5.9-8.4); Sodium Level 140 mmol/L (133-145); Total Bilirubin 0.74 mg/dL (0.00-1.30); Vitamin B12 513 pg/mL (180-914)
[2024-11-09 07:37] LABS: Iron 122 ug/dL (65-175)
== END | disposition home or self-care (01) ==
PROVIDERS: PCP Student in an Organized Health Care Education/Training Program; Referring Provider Psychiatry & Neurology Neurology; Visit Provider Psychiatry & Neurology Neurology
DX: R41.3 Other amnesia (principal); G25.81 Restless legs syndrome; R79.89 Other specified abnormal findings of blood chemistry
CPT/HCPCS: 36415; 70553; 80053; 82607; 82728; 82747; 83036; 83540; 84402; 84403; 84425; 84443; 85014; 85027; A9575